=== PATIENT | female | born 1975 | race Caucasian/White ===

== ENCOUNTER 2018-03-18 12:35 | Emergency (ER) | payer BC, OTHER ==
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
[2018-03-18] MEDS ORDERED: Ibuprofen TAB* 600 MG PO ONE (13:52)
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
[2018-03-18 15:03] VITALS: BP 126/71
== END 2018-03-18 15:02 | disposition home or self-care (01) ==
LOC: ED 12:35
DX: S93.401A Sprain of unspecified ligament of right ankle, initial encounter (principal); S43.401A Unspecified sprain of right shoulder joint, initial encounter; V43.52XA Car driver injured in collision with other type car in traffic accident, initial encounter; Y92.410 Unspecified street and highway as the place of occurrence of the external cause; R07.9 Chest pain, unspecified; Z88.5 Allergy status to narcotic agent
CPT/HCPCS: 71045; 99282; A9270-GY